=== PATIENT | male | born 1995 | race Two or more races ===

== ENCOUNTER 2019-02-09 21:52 | Emergency (ER) | payer MEDICAID ==
[~2019-02-09] VITALS: Ht 185.4 cm; Wt 92.5 kg
--- NOTE | 2019-02-09 22:05 | NUR ---
Pt. 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
[2019-02-09] MEDS ORDERED: TETRACAINE HCL 0.5% OPHT DROP 2 ML BOTTLE ONE (22:10)
[2019-02-09] MEDS ORDERED: FLUORESCEIN SODIUM 1 MG STRIP ONE (22:10)
--- NOTE | 2019-02-09 22:13 | NUR ---
at bedside for MSE,
[2019-02-09] MEDS ORDERED: TDAP DIPH,PERTUSS,TET VAC/PF 0.5 ML DISP.SYRIN IM ONE ×2 (22:27→22:30)
--- NOTE | 2019-02-09 22:33 | NUR ---
Patient discharged to home in stable conditon. Written and verbal after care instructions given. Patient verbalizes understanding of instructions. Pt. 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
== END 2019-02-09 22:37 | disposition home or self-care (01) ==
LOC: ER 21:54
DX: S05.01XA Injury of conjunctiva and corneal abrasion without foreign body, right eye, initial encounter (principal); X58.XXXA Exposure to other specified factors, initial encounter; Y93.89 Activity, other specified; Y92.89 Other specified places as the place of occurrence of the external cause; Y99.8 Other external cause status
CPT/HCPCS: 90715; A4663